=== PATIENT | male | born 1970 | race Caucasian/White ===

== ENCOUNTER 2017-04-05 20:41 | Emergency (ER) | payer BC ==
[~2017-04-05] VITALS: Ht 172.7 cm; Wt 64.4 kg
[2017-04-05 20:55] VITALS: BP 145/87
[2017-04-05] MEDS ORDERED: AZITHROMYCIN250 MG ORAL (21:18)
--- NOTE | 2017-04-05 21:19 | Emergency Room Report ---
History of Present Illness General Chief Complaint: Sore Throat Source: Patient Present Illness HPI This is a 46-year-old male with no past medical history. He presents with chief when a fever and sore throat. Onset started last night. Worse this morning. Pain is severe. 9/10. Worse with swallowing. Has low-grade fever. No cough or congestion. No nausea no vomiting. No sick contact. Allergies: Coded Allergies: No Known Allergies (Unverified , 04/05/17) Patient History Past Medical History: see triage record, old chart reviewed Past Surgical History: none Pertinent Family History: none Social History: Denies: smoking Immunizations: other Reviewed Nursing Documentation: PMH: Agreed, PSxH: Agreed Nursing Documentation-PMH Past Medical History: No Stated History Review of Systems Eye: Denies: eye pain, blurred vision ENT: Reports: throat pain, Denies: ear pain, nose congestion, throat swelling Respiratory: Denies: cough, shortness of breath Cardiovascular: Denies: chest pain, palpitations Gastrointestinal: Denies: abdominal pain, diarrhea, nausea, vomiting Musculoskeletal: Denies: back pain, joint pain Skin: Denies: rash Neurological: Denies: headache, numbness Endocrine: Denies: increased thirst, increased urine Hematologic/Lymphatic: Denies: easy bruising All Other Systems: negative except mentioned in HPI Physical Exam Vital Signs Date Time Temp Pulse Resp B/P (MAP) Pulse Ox O2 Delivery O2 Flow Rate FiO2 04/05/17 20:49 99.5 92 17 145/87 99 Room Air vitals with low-grade fever Sp02 EP Interpretation: reviewed, normal General Appearance: well appearing, no apparent distress, alert Head: normocephalic, atraumatic Eyes: bilateral eye PERRL, bilateral eye EOMI ENT: hearing grossly normal, tonsillar swelling - Left tonsil erythematous, pharyngeal erythema Neck: full range of motion, supple, no meningismus Respiratory: chest non-tender, lungs clear, normal breath sounds Cardiovascular #1: regular rate, rhythm, no murmur Gastrointestinal: normal bowel sounds, non tender, no mass, no organomegaly, no bruit, non-distended Musculoskeletal: back normal, gait/station normal, normal range of motion Psychiatric: mood/affect normal Skin: warm/dry Medical Decision Making Diagnostic Impression: Primary Impression: Acute tonsillitis Qualified Codes: J03.90 - Acute tonsillitis, unspecified ER Course Patient with acute tonsillitis. Most likely strep since he has no other viral URI symptoms. No evidence of tonsillar abscess, retropharyngeal abscess or Andrew angina. Last Vital Signs Date Time Temp Pulse Resp B/P (MAP) Pulse Ox O2 Delivery O2 Flow Rate FiO2 04/05/17 20:55 99.5 17 145/87 99 Room Air 04/05/17 20:49 92 Status: unchanged Disposition: HOME, SELF-CARE Condition: Stable Scripts Azithromycin* (ZITHROMAX*) 250 Mg Tablet 250 MG ORAL DAILY, #6 TAB 0 Refills Take two tablets by mouth today, then take one tablet by mouth daily for four days Prov: TAI ALTAMIRANO M.D. 04/05/17 Patient Instructions: Strep Throat Additional Instructions: Followup with your Dr. in 2 to 3 days. Increase fluids. Salt water gargle. Motrin/Advil as needed for pain. Return if worse. TAI ALTAMIRANO M.D. Apr 05, 2017 21:19
[2017-04-05 21:30] VITALS: BP 145/87
== END 2017-04-05 21:30 | disposition home or self-care (01) ==
LOC: EMR 21:20
DX: J03.90 Acute tonsillitis, unspecified (principal)
CPT/HCPCS: 99283